=== PATIENT | male | born 1990 | race Caucasian/White ===

== ENCOUNTER 2016-11-17 05:42 | Outpatient (CLI) | payer MEDICARE, MEDICAID ==
[~2016-11-17] VITALS: Ht 172.7 cm; Wt 73.9 kg
[2016-11-17] MEDS ORDERED: LORA10TA7 PO (12:59)
[2016-11-17] MEDS ORDERED: RISP2TAB83 PO (12:59)
[2016-11-17] MEDS ORDERED: DOCU-143 PO (12:59)
[2016-11-17] MEDS ORDERED: OLOP2.5D OP (12:59)
[2016-11-17] MEDS ORDERED: TRAZ150T72 PO (12:59)
[2016-11-17] MEDS ORDERED: FLUT9.9S NS (13:02)
[2016-11-17] MEDS ORDERED: CARB15DR23 OT (13:02)
== END 2016-11-17 13:21 ==
LOC: PREOP 05:42
PROVIDERS: ATTEND Otolaryngology Otolaryngology/Facial Plastic Surgery
DX: Z01.818 Encounter for other preprocedural examination (principal); H65.92 Unspecified nonsuppurative otitis media, left ear; H70.90 Unspecified mastoiditis, unspecified ear

== ENCOUNTER 2016-11-26 06:04 | Day surgery (SDC) | payer MEDICARE, MEDICAID ==
[~2016-11-26] VITALS: Ht 172.7 cm; Wt 73.9 kg
[~2016-11-26 06:04] MED LIST: CARB15DR23 OT; DOCU-143 PO; FLUT9.9S NS; LORA10TA7 PO; OLOP2.5D OP; RISP2TAB83 PO; TRAZ150T72 PO
[2016-11-26] MEDS ORDERED: LACTATED RINGERS 1,000 ML IV PRN (06:24)
[2016-11-26 06:49] VITALS: BP 137/96
[2016-11-26] MEDS ORDERED: LIDOCAINE PF 2% 10 ML (XYLOCAINE) AMP ONE (06:55)
[2016-11-26] MEDS ORDERED: LACTATED RINGERS 1,000 ML IV ONE (06:55)
[2016-11-26] MEDS ORDERED: MIDAZOLAM 2 MG/2 ML (VERSED) VIAL ONE (06:55)
[2016-11-26] MEDS ORDERED: ONDANSETRON 4 MG/2 ML (SDV) Z0FRAN ONE (06:55)
[2016-11-26] MEDS ORDERED: SEVOFLURANE (ULTANE) 15 ML INHAL SOLN ONE (06:55)
[2016-11-26] MEDS ORDERED: proPOfol 200 MG/20 ML (DIPRIVAN) VIAL IV ONE (06:55)
[2016-11-26] MEDS ORDERED: DEXAMETHASONE PF 10 MG/ML (DECADRON) VIAL ONE (07:04)
[2016-11-26] MEDS ORDERED: fentaNYL INJECTION 100 MCG/2 ML AMP ONE (07:11)
--- NOTE | 2016-11-26 07:21 | Progress Note-Pre Operative ---
Pre-Operative Progress Note H&P Reviewed The H&P was reviewed, patient examined and no changes noted. Date H&P Reviewed: Nov 26, 2016 Time H&P Reviewed: 07:00 Pre-Operative Diagnosis: Chronic Left LYNDA BROOKE PEÑA MD Nov 26, 2016 7:21 am
[2016-11-26] MEDS ORDERED: APAP 325 MG/10.15 ML LIQ (TYLENOL) UDC PO PRN (07:30)
[2016-11-26 07:55] VITALS: BP 118/89
[2016-11-26] MEDS ORDERED: CIPR5DRO LEFT EAR (08:19)
[2016-11-26 08:25] VITALS: BP 128/88
== END 2016-11-26 08:37 | disposition home or self-care (01) ==
LOC: SDC 06:04
PROVIDERS: ATTEND Otolaryngology Otolaryngology/Facial Plastic Surgery
DX: H65.22 Chronic serous otitis media, left ear (principal)
CPT/HCPCS: 87081